=== PATIENT | male | born 1980 | race Caucasian/White ===

== ENCOUNTER 2017-06-09 16:05 | Emergency (ER) | payer OTHER ==
[~2017-06-09] VITALS: Ht 177.8 cm; Wt 96.0 kg
[2017-06-09 16:07] VITALS: TEMP 36.5; Ht 177.8 cm; Wt 96.0 kg
[2017-06-09] MEDS ORDERED: OXYCODONE HCL IR 5 MG TAB (IMMEDIATE RELEASE) PO STA (16:17)
--- NOTE | 2017-06-09 16:23 | EMERGENCY ROOM VISIT NOTE ---
History First contact with patient: 16:11 Chief Complaint: ELBOW PAIN/INJURY Stated Complaint: R ELBOW INJURY/PAIN History of Present Illness The patient is a 37 year old male who presents to the Emergency Room via private vehicle accompanied by ha with complaints of "right elbow injury/ pain". The patient states that on Sunday, he was throwing a baseball and noted pain in the right lateral elbow region. He states that on he rested, however yesterday morning he began throwing a baseball again and noted a resurgence of his pain. He tried heat wraps with relief, however again today he threw a baseball causing a resurgence of the pain. He notes the pain is excruciating, and the right lateral elbow pain note slight tingling in the fingers. He is right-handed. He rates the pain as a 9/10. Review of Systems A complete 6-point Review of Systems was discussed with the patient, with pertinent positives and negatives listed in the History of Present Illness. All remaining Review of Systems questions can be considered negative unless otherwise specified. Past Medical/Surgical History No pertinent. Family History Diabetes, heart disease, blood pressure, cancer, kidney disease or stones. Social History Smoking Status: Current Every Day Smoker Patient lives at home with ha. Current/Historical Medications Scheduled Aripiprazole (Abilify), 10 MG PO HS Escitalopram (Lexapro), 10 MG PO QAM Gabapentin (Neurontin), 800 MG PO QID [place] Carbonate ([place] Carbonate), 300 MG PO QAM [place] Carbonate ([place] Carbonate), 600 MG PO HS Scheduled PRN Oxycodone Ir (Roxicodone Ir), 1-2 TAB PO Q4H PRN for Pain Physical Exam Vital Signs Date Time Temp Pulse Resp B/P (MAP) Pulse Ox O2 Delivery O2 Flow Rate FiO2 06/09/17 18:15 89 18 158/90 95 06/09/17 16:07 36.5 91 16 162/78 97 Room Air Physical Exam VITAL SIGNS - Vital signs and nursing notes were reviewed. Patient is afebrile , hypertensive 162/78, non-tachycardic and is saturating well on room air 97%. GENERAL -37-year-old male appearing his stated age who is in no acute distress. Communicates well with provider and answers questions appropriately. SKIN - Without rashes. Skin overlying the right elbow is slightly erythematous. Slight edema noted. To the right lateral elbow joint region. EXTREMITIES - No clubbing or peripheral cyanosis. No pretibial edema present. Decreased range of motion of the right elbow joint secondary to elicited tenderness in the joint itself. There is tenderness palpation overlying the lateral epicondyle region. +5/5 strength noted in UE/LE bilaterally. He is neurovascularly intact in this region. Medical Decision & Procedures ER Provider Diagnostic Interpretation: RIGHT ELBOW MIN 3 VIEWS ROUTINE CLINICAL HISTORY: Right elbow pain s/p throwing baseball COMPARISON: None FINDINGS: Alignment of the right elbow is anatomic. No fracture or joint effusion is identified. Joint spaces are preserved. IMPRESSION: Unremarkable right elbow radiographs. Electronically signed by: Navid Newton M.D. 06/09/2017 5:37 PM Dictated Date/Time: 06/09/2017 5:36 PM Medications Administered Medications (Trade) Dose Ordered Sig/Maxime Route Start Time Stop Time Status Last Admin Dose Admin Oxycodone HCl (Roxicodone Immediate Rel Tab) 5 mg NOW STAT PO 06/09/17 16:17 06/09/17 16:18 DC 06/09/17 16:45 5 MG Medical Decision Patient was seen and evaluated as above. After obtaining a thorough history and physical examination radiographs was obtained of the right elbow, he was given OxyIR for pain, and ice packs were also given. He presents to us today with right lateral elbow pain status post during a baseball. I suspect he has either sprained a ligament, or has a slight tear. For this reason he'll be managed conservatively, with an arm sling for immobilization, a short course of pain medication as well as other conservative measures which were discussed thoroughly with him. He'll be referred to orthopedics for further evaluation and management. He was educated upon worrisome symptoms which to return, had questions answered prior to discharge, and was discharged home in condition. He was neurovascularly intact throughout his stay. In the evaluation and treatment of this patient, the following differential diagnoses were considered: Forearm Contusion, Radial Head Fracture, Radial Styloid Process Fracture, Ulnar Styloid Process Fracture, Radius Fracture, Ulnar Fracture, Tennis Elbow, Golfer's Elbow, or Elbow Fracture. [place] Drug Monitoring Program Search Results: patient reviewed within database, no issues identified Medication Reconcilliation Current Medication List: was personally reviewed by ga Blood Pressure Screening Blood pressure disposition: Elevated BP felt to be situational Impression Primary Impression: Left elbow pain Departure Information Dispostion Home / Self-Care Condition GOOD Prescriptions Oxycodone Ir (Roxicodone Ir) 5 Mg Tab 1-2 TAB PO Q4H Y for Pain, #15 TAB For Initial Treatment Prov: Manas Toscano PA-C 06/09/17 Referrals No Doctor, Assigned (PCP) Bairon Landry D.O. Patient Instructions My [facility] Additional Instructions You have been treated in the Emergency Department for Elbow Pain. You have received pain medicine in the emergency department which impairs your ability to operate a vehicle. It is illegal for you to drive after receiving these medicines. You have been prescribed Oxy IR to be used for pain control. This is a narcotic medication. You cannot drive or consume alcohol while on this medicine. This medicine should only be used for pain that cannot be controlled with over-the- counter pain medicines. For pain control, you can use the following [id number] medicines (if >12 yo): - Regular strength (325mg/tab) Tylenol (acetaminophen) 2 tabs every 4-6 hours as needed. Do not exceed 12 tablets in a 24 hour period. Avoid taking more than 3 grams (3000 mg) of Tylenol per day. This includes any other sources of acetaminophen you may take on a regular basis. - Regular strength (200 mg/tab) Advil (ibuprofen) 1-2 tabs every 4-6 hours as needed. Do not exceed a dose of 3200 mg per day. If this is a recent injury (<24 hrs), ice can be applied to the area of pain for the first 3 days to help decrease pain and inflammation. You have been provided the number for an Orthopaedic Surgeon. You should call this number as soon as possible to establish a follow-up visit from today's Emergency Department visit. Keep the sling/splint in place until evaluated by Orthopedics. Return to the Emergency Department if your current symptoms worsen despite treatment course outlined above, or if you develop any of the following symptoms : intractable pain despite aforementioned treatment course or new onset of numbness or tingling of the arm. Please return the emergency Department if new/concerning symptoms. As we discussed please follow up with your family doctor for your blood pressure today.
[2017-06-09] MEDS ORDERED: LTHSR/300 PO ×2 (16:29)
[2017-06-09] MEDS ORDERED: GABA800T PO (16:29)
[2017-06-09] MEDS ORDERED: ABL10 PO (16:29)
[2017-06-09] MEDS ORDERED: ESCI10TA17 PO (16:29)
--- NOTE | 2017-06-09 17:38 | DIAGNOSTIC IMAGING REPORT ---
RIGHT ELBOW MIN 3 VIEWS ROUTINE CLINICAL HISTORY: Right elbow pain s/p throwing baseball COMPARISON: None FINDINGS: Alignment of the right elbow is anatomic. No fracture or joint effusion is identified. Joint spaces are preserved. IMPRESSION: Unremarkable right elbow radiographs. Electronically signed by: Navid Newton M.D. 06/09/2017 5:37 PM Dictated Date/Time: 06/09/2017 5:36 PM
[2017-06-09] MEDS ORDERED: OXYC1TAB3 PO (17:51)
[2017-06-09 18:15] VITALS: BP 158/90; PULSE 89; O2SAT 95
== END 2017-06-09 18:17 | disposition home or self-care (01) ==
LOC: C.EDB 16:07 → C.EDD 18:17
DX: S59.901A Unspecified injury of right elbow, initial encounter (principal); M25.521 Pain in right elbow; Y93.64 Activity, baseball; F17.210 Nicotine dependence, cigarettes, uncomplicated

== ENCOUNTER 2018-01-21 20:06 | Emergency (ER) | payer OTHER ==
[~2018-01-21] VITALS: Ht 177.8 cm; Wt 96.7 kg
[~2018-01-21 20:06] MED LIST: ABL10 PO; ESCI10TA17 PO; GABA800T PO; LTHSR/300 PO
[2018-01-21 20:09] VITALS: TEMP 36.5; Ht 177.8 cm; Wt 96.7 kg
[2018-01-21] MEDS ORDERED: KETOROLAC TROMETHAMINE 60 MG/2 ML VIAL IM STA (20:19)
--- NOTE | 2018-01-21 20:51 | DIAGNOSTIC IMAGING REPORT ---
CHEST ONE VIEW PORTABLE HISTORY: rt chest wall pain COMPARISON: None. FINDINGS: No pneumothorax. No pleural effusions. The heart is normal in size. The lungs are clear. There is mild thickening within the right mid lateral pleura. IMPRESSION: Mild thickening of the right mid lateral pleura. This could represent underlying rib fractures if the patient has had prior trauma. Recommend dedicated right rib series for further evaluation. Otherwise, a chest CT can also be performed to assess for a pleural abnormality. Electronically signed by: Luiz Brar M.D. 01/21/2018 8:50 PM Dictated Date/Time: 01/21/2018 8:47 PM
[2018-01-21] MEDS ORDERED: MoRPHine SULFATE 10 MG/ML CARP/VIAL IM STA (21:02)
--- NOTE | 2018-01-21 21:07 | EMERGENCY ROOM VISIT NOTE ---
History Report prepared by Martitaibcedrick: Chanel Willard Under the Supervision of: Dr. Richmond Moscoso D.O. First contact with patient: 20:17 Chief Complaint: RIB PAIN Stated Complaint: R SIDE RIB PAIN History of Present Illness The patient is a 37 year old male who presents to the Emergency Room with complaints of persistent right rib pain starting yesterday. The patient bent over to put his shoes on yesterday and felt a pop in his right rib area. He notes this area was where he had shingles several months ago. He had a CT yesterday which found 2 healing rib fractures. He currently rates his discomfort as an 8/10 in severity. The pain worsens with movement and breathing deeply. He has been taking shallow breaths and has been unable to sleep. He feels fatigued. Source of History: patient Onset: yesterday Position: other (right rib) Symptom Intensity: 8/10 Quality: other (shooting) Timing: other (persistent) Modifying Factors (Worsening): breathing, movement Associated Symptoms: + fatigue Review of Systems See HPI for pertinent positives & negatives. A total of 10 systems reviewed and were otherwise negative. Past Medical & Surgical Medical Problems: (1) Shingles Family History Cancer Diabetes mellitus Heart disease Hypertension Kidney disease Kidney stones Social History Smoking Status: Current Every Day Smoker Occupation Status: unemployed Current/Historical Medications Scheduled Aripiprazole (Abilify), 10 MG PO HS Escitalopram (Lexapro), 10 MG PO QAM Gabapentin (Neurontin), 800 MG PO QID [place] Carbonate ([place] Carbonate), 300 MG PO QAM [place] Carbonate ([place] Carbonate), 600 MG PO HS Allergies Coded Allergies: Prochlorperazine (Verified Allergy, Intermediate, Joints lock up, 06/09/17) Grass (Unverified Allergy, Unknown, 02/29/04) POLLEN (Unverified Allergy, Unknown, 02/29/04) Physical Exam Vital Signs Date Time Temp Pulse Resp B/P (MAP) Pulse Ox O2 Delivery O2 Flow Rate FiO2 01/21/18 20:09 36.5 94 16 136/86 99 Room Air Physical Exam CONSTITUTIONAL/VITAL SIGNS: Reviewed / noted above. GENERAL: Non-toxic in appearance. INTEGUMENTARY: Warm, dry, and [place]. HEAD: Normocephalic. EYES: without scleral icterus or trauma. ENT/OROPHARYNX: clear and moist. LYMPHADENOPATHY/NECK: Is supple without lymphadenopathy or meningismus. RESPIRATORY: Lungs clear and equal. CARDIOVASCULAR: Regular rate and rhythm. GI/ABDOMEN: Soft and nontender. No organomegaly or pulsatile mass. No rebound or guarding. Normal bowel sounds. EXTREMITIES: Warm and well perfused. BACK: No CVA tenderness. NEUROLOGICAL: Intact without focal deficits. PSYCHIATRIC: normal affect. MUSCULOSKELETAL: Normally developed with good muscle tone. Medical Decision & Procedures ER Provider Diagnostic Interpretation: X ray results and stated below per my interpretation and radiology interpretation. CHEST ONE VIEW PORTABLE HISTORY: rt chest wall pain COMPARISON: None. FINDINGS: No pneumothorax. No pleural effusions. The heart is normal in size. The lungs are clear. There is mild thickening within the right mid lateral pleura. IMPRESSION: Mild thickening of the right mid lateral pleura. This could represent underlying rib fractures if the patient has had prior trauma. Recommend dedicated right rib series for further evaluation. Otherwise, a chest CT can also be performed to assess for a pleural abnormality. Electronically signed by: Luiz Brar M.D. 01/21/2018 8:50 PM Dictated Date/Time: 01/21/2018 8:47 PM Medications Administered Medications (Trade) Dose Ordered Sig/Maxime Route Start Time Stop Time Status Last Admin Dose Admin Ketorolac Tromethamine (Toradol Inj) 60 mg NOW STAT IM 01/21/18 20:19 01/21/18 20:21 DC 01/21/18 20:41 60 MG ED Course 2019: Toradol Inj 60 mg IM. 2050: Previous medical records were reviewed. The patient was evaluated in room C10. A complete history and physical examination was performed. I discussed the results and findings with the patient. He verbalized agreement of the treatment plan. He was discharged home. 2101: Morphine Sulfate 6 mg IM. Medical Decision the differential was considered includes acute myocardial infarction, acute coronary syndrome, myocarditis, pericarditis, pericardial effusions /tamponad, esophageal perforation, thoracic aortic dissection, pulmonary embolism, pneumonia, pneumothorax, pancreatitis, shingles, acute cholecystitis, perforated abdominal viscus. This is a 37-year-old male who presents to the ED with a chief complaint of right-sided rib pain. The patient states that he has had shingles about a month ago. He reports that he was at [facility] last night and had a CT scan of his chest. They stated that he had 2 healing rib fractures in the area but otherwise did not show any acute abnormalities. He denies any recent trauma to suggest a rib fracture. The patient states that last night he bent over and heard a pop in his right ribs that increases pain. The patient's physical exam was unremarkable. There is some tenderness in that region. Chest x-ray as noted above. There was noted to be some mild thickening of the right mid lateral pleura otherwise no pneumothorax or pneumonia. Because the patient had a CT scan last night, I did not feel this would be appropriate to repeat today. The patient's vital signs are normal. He is afebrile. He was treated with Toradol and morphine IM. He is currently taking Neurontin. I did recommend that he follow-up with a pain specialist for further evaluation and management of his pain. Medication Reconcilliation Current Medication List: was personally reviewed by me Blood Pressure Screening Patient's blood pressure: Elevated blood pressure Blood pressure disposition: Elevated BP felt to be situational Impression Primary Impression: Chest wall pain Scribe Attestation The scribe's documentation has been prepared under my direction and personally reviewed by me in its entirety. I confirm that the note above accurately reflects all work, treatment, procedures, and medical decision making performed by me. Departure Information Dispostion Home / Self-Care Referrals Tanner Krishna M.D. (PCP) Patient Instructions My [facility] Additional Instructions Follow-up with a local pain specialist for further treatment and management of your pain. Call tomorrow for an appointment. Follow-up with your PCP as well.
[2018-01-21 21:29] VITALS: BP 135/79; PULSE 88; O2SAT 98
[2018-01-21] MEDS ORDERED: LAMO100T16 PO (21:37)
[2018-01-21] MEDS ORDERED: DULO60CA44 PO (21:37)
[2018-01-21] MEDS ORDERED: IBUP-1050 PO (21:37)
== END 2018-01-21 21:25 | disposition home or self-care (01) ==
LOC: C.EDB 20:07 → C.EDC 21:25
DX: R07.89 Other chest pain (principal); F17.200 Nicotine dependence, unspecified, uncomplicated; Z88.8 Allergy status to other drugs, medicaments and biological substances; Z91.048 Other nonmedicinal substance allergy status; Z80.9 Family history of malignant neoplasm, unspecified; Z83.3 Family history of diabetes mellitus; Z82.49 Family history of ischemic heart disease and other diseases of the circulatory system; Z84.1 Family history of disorders of kidney and ureter